=== PATIENT | female | born 1950 | race Caucasian/White ===

== ENCOUNTER → 2021-05-01 | Outpatient (CLI) | payer MEDICARE, BC ==
--- NOTE | 2021-05-01 14:32 | XR ---
EXAMINATION TYPE: XR chest 2V DATE OF EXAM: 05/01/2021 COMPARISON: 07/12/2015 TECHNIQUE: PA and lateral views submitted. HISTORY: Night sweats FINDINGS: The lungs are clear and there is no pneumothorax, pleural effusion, or focal pneumonia. Hyperexpans ion of lungs correlate for COPD. Degenerative changes spine. Heart size normal. No overt failure. Marisa pical pleural thickening. Arthropathy of the shoulder. Curvature of the spine compatible scoliosis. IMPRESSION: 1. No acute process.
== END | disposition home or self-care (01) ==
LOC: RADXRMAIN 14:12
PROVIDERS: ATTEND Family Medicine
DX: R61 Generalized hyperhidrosis (principal)
CPT/HCPCS: 71046

== ENCOUNTER → 2021-08-26 | Outpatient (CLI) | payer MEDICARE, BC | END | disposition home or self-care (01) | LOC: LABWHC1 14:10 | PROVIDERS: ATTEND Nurse Practitioner Family | DX: J30.89 Other allergic rhinitis (principal) | CPT/HCPCS: 36415 ==

== ENCOUNTER 2022-03-09 12:50 | Emergency (ER) | payer MEDICARE, BC ==
[2022-03-09 13:21] VITALS: BP 174/85; PULSE 82; RESP 20; TEMP 98.5
--- NOTE | 2022-03-09 14:43 | XR ---
Chest x-ray with bilateral RIBS HISTORY: Trauma and pain From view of the chest, 4 views of the left ribs and 4 views of the right ribs are submitted on total 9 images Correlation to chest x-ray 05/01/2021 There is no evident pneumothorax or pleural effusion. There is a spinal curvature. Cardiac mediastina l silhouette is stable. No evident airspace disease. No displaced rib fracture is seen. Bifid fourth rib on the left is suspected. IMPRESSION: Correlate for point tenderness, bone scan could be performed to assess for occult fractur e as indicated.
[2022-03-09] MEDS ORDERED: BACITRACIN OINT 1 EACH PACKET TOPICAL ONE (14:45)
--- NOTE | 2022-03-09 15:01 | CT ---
EXAMINATION TYPE: CT brain cspine wo con CT DLP: 1368.8 mGycm, Automated exposure control for dose reduction was used. DATE OF EXAM: 03/09/2022 2:01 PM COMPARISON: None.. CLINICAL INDICATION:Female, 71 years old with history of fall; Fall TECHNIQUE: Brain: Multiple axial CT images of the brain were obtained without IV contrast. Cspine: Axial CT images from the skull base to the inferior aspect of T2 we obtained without intraven ous contrast. Coronal and sagittal reformatted images were also reviewed. FINDINGS: Brain: Extra-axial spaces: No abnormal extra-axial fluid collections. Ventricular system: Within normal limits Cerebral parenchyma: No acute intraparenchymal hemorrhage or mass effect. The klein-white junction is well differentiated. Scattered hypoattenuating areas are seen within the white matter. Cerebellum: Unremarkable. Mass effect: No evidence of midline shift. Intracranial vasculature: Atherosclerotic calcifications of the intracranial vessels. Soft tissues: Normal. Calvarium/osseous structures: No depressed skull fracture. Paranasal sinuses and mastoid air cells: Clear. Visualized orbits: Right aphakia Cervical spine: Fracture: None. Osseous structures: Mild multilevel degenerative disc disease changes with endplate spurring and disc osteophyte complex's. Vertebral alignment: Within normal limits. Spinal canal/Neural Foramina: Disc osteophyte complexes at C5-C6 with at least mild spinal canal sten osis. No evidence for significant neural foraminal stenosis. Neck soft tissues: Prevertebral soft tissues are within normal limits. Other: The airway is patent. 6 mm groundglass nodule within the left upper lobe. IMPRESSION: 1. No acute intracranial process. 2. Nonspecific white matter changes, likely secondary to chronic small vessel ischemic disease. 3. No evidence of cervical spine fracture. 4. Mild multilevel degenerative disc disease. 5. 6 mm groundglass nodule within the left upper lobe. CT chest examination in 6 months is recommende d.
[2022-03-09] MEDS ORDERED: HYDROmorphone 1 MG/ML 1 ML SYRINGE IM STA (15:34)
--- NOTE | 2022-03-09 15:34 | ED ---
Fall HPI - General Chief Complaint: Fall Stated Complaint: head & back injury Time Seen by Provider: 03/09/22 13:26 Source: patient Mode of arrival: ambulatory - History of Present Illness Initial Comments: Patient is a 71-year-old female presenting for evaluation post fall. Patient was walking into a store when the entrance door flung open hitting her on the left side of the head, this caused her to fall backwards. The lower portion of her ribs on the right side hit a ledge made out of bricks. No loss of consciousness and patient is not on any blood thinners. No difficulty breathing, hemoptysis, hematemesis. No chest pain, abdominal pain, nausea, vomiting, dizziness, vision or hearing changes, neck pain or stiffness, numbness, tingling, weakness. - Related Data Home Medications Medication Instructions Recorded Confirmed amLODIPine [Norvasc] 5 mg PO DAILY 07/12/15 07/12/15 lisinopriL [Zestril] 10 mg PO DAILY 07/12/15 07/12/15 Previous Rx's Medication Instructions Recorded LORazepam [Ativan] 1 mg PO BID PRN #20 tab 07/12/15 Lidocaine 5% Patch [Lidoderm 5% 1 patch TOPICAL DAILY PRN #1 pack 03/09/22 Patch] Allergies Allergy/AdvReac Type Severity Reaction Status Date / Time erythromycin base Allergy Rash/Hives Verified 03/09/22 13:21 Review of Systems ROS Statement: Those systems with pertinent positive or pertinent negative responses have been documented in the HPI. ROS Other: All systems not noted in ROS Statement are negative. Past Medical History Past Medical History: Hypertension History of Any Multi-Drug Resistant Organisms: None Reported Past Surgical History: Appendectomy, Hysterectomy, Orthopedic Surgery, Tonsillectomy Additional Past Surgical History / Comment(s): lt ankle ,lt knee Past Psychological History: No Psychological Hx Reported Smoking Status: Never smoker Past Alcohol Use History: Occasional, Rare Past Drug Use History: Marijuana General Exam Limitations: no limitations General appearance: alert, in no apparent distress Head exam: Present: atraumatic, normocephalic, normal inspection Eye exam: Present: normal appearance, PERRL, EOMI. Absent: scleral icterus, conjunctival injection, periorbital swelling Pupils: Present: normal accommodation Neck exam: Present: normal inspection, full ROM. Absent: tenderness Respiratory exam: Present: normal lung sounds bilaterally. Absent: respiratory distress, wheezes, rales, rhonchi, stridor Cardiovascular Exam: Present: regular rate, normal rhythm, normal heart sounds. Absent: systolic murmur, diastolic murmur, rubs, gallop, clicks Extremities exam: Present: normal inspection, full ROM Neurological exam: Present: alert, oriented X3, CN II-XII intact Expanded Patient oriented to: Present: person, place, time Speech: Present: fluid speech Cranial nerves: EOM's Intact: Normal, Facial Sensation: Normal Sensory exam: Upper Extremity Light Touch: Normal, Lower Extremity Light Touch: Normal Motor strength exam: RUE: 5, LUE: 5, RLE: 5, LLE: 5 Eye Response: (4) open spontaneously Motor Response: (6) obeys commands Verbal Response: (5) oriented Gene Total: 15 Psychiatric exam: Present: normal affect, normal mood Skin exam: Present: warm, dry, intact, normal color. Absent: rash Course Vital Signs 03/09/22 13:18 Temperature 98.5 F Pulse Rate 82 Respiratory 20 Rate Blood Pressure 174/85 O2 Sat by Pulse 97 Oximetry Medical Decision Making - Medical Decision Making Patient is a 71-year-old female presenting for evaluation post fall. Patient hit her head and the right side of her ribs. No loss of consciousness or blood thinners. Physical examination shows no focal neurological deficits, GCS 15. CT of the brain and cervical spine shows no acute intracranial process or fracture, x-ray of the ribs shows no fracture or pneumothorax. Patient is given pain medication. Follow-up with PCP. Report back to ER with any new or worsening symptoms. Discussed return parameters and answered all questions. Patient conveyed verbal understanding and agreed to the plan. I discussed this case in detail with my attending Dr. Killian. Disposition Clinical Impression: Head injury, Rib injury Disposition: HOME SELF-CARE Condition: Good Instructions (If sedation given, give patient instructions): Rib Fracture (ED), Head Injury (ED) Additional Instructions: Follow-up with PCP. Report back to ER with any new or worsening symptoms. Take Motrin and Tylenol as needed for pain control. Prescriptions: Lidocaine 5% Patch [Lidoderm 5% Patch] 1 patch TOPICAL DAILY PRN #1 pack PRN Reason: Pain Is patient prescribed a controlled substance at d/c from ED?: No Referrals: Enio Lemus DO [Primary Care Provider] - 1-2 days Time of Disposition: 15:34
== END 2022-03-09 15:48 | disposition home or self-care (01) ==
LOC: EC 12:50
DX: S22.31XA Fracture of one rib, right side, initial encounter for closed fracture (principal); S09.90XA Unspecified injury of head, initial encounter; I10 Essential (primary) hypertension; F12.90 Cannabis use, unspecified, uncomplicated; Z79.899 Other long term (current) drug therapy; W01.198A Fall on same level from slipping, tripping and stumbling with subsequent striking against other object, initial encounter
CPT/HCPCS: 71111; 72125; 70450; 99284; 96372; J1170

== ENCOUNTER → 2022-09-23 | Outpatient (CLI) | payer MEDICARE, BC ==
--- NOTE | 2022-09-23 13:57 | CT ---
EXAMINATION TYPE: CT chest w con DATE OF EXAM: 09/23/2022 COMPARISON: CT cervical spine March 09, 2022 HISTORY: nodules. Prior abnormal CT. CT DLP: 141.3 mGycm. Automated Exposure Control for Dose Reduction was Utilized. TECHNIQUE: CT scan of the thorax is performed following with IV Contrast, patient injected with 100 mL of Isovue 300. FINDINGS: LUNGS: Stable 5 to 6 mm left upper lobe groundglass nodule axial image 9 corresponding to coronal cristopher ge 45. Mild scattered linear scarring including slightly more prominent or thickened scarring with mi ld peribronchial wall thickening in the right midlung anteriorly having more nodular component on axi al image 37 measuring 1.4 x 0.7 cm. No pleural effusion or pneumothorax seen bilaterally. MEDIASTINUM: There are no greater than 1 cm hilar or mediastinal lymph nodes. No cardiomegaly or pe ricardial effusion is seen. Coronary artery calcification is present. OTHER: There are a few small simple appearing thin-walled cysts scattered throughout the liver. There is scoliosis in the thoracic spine. IMPRESSION: There is stable 5 to 6 mm left upper lobe groundglass nodule. Mild scattered linear scarr ing with more nodular component in the right mid lung anteriorly. Cannot exclude underlying true pulm onary nodule versus nodular scarring. Advise PET CT follow-up to further evaluate.
== END | disposition home or self-care (01) ==
LOC: RADCTMAIN 12:38
PROVIDERS: ATTEND Internal Medicine
DX: J98.4 Other disorders of lung (principal); R91.1 Solitary pulmonary nodule
CPT/HCPCS: 82565; 84520; 71260; 36415; Q9967

== ENCOUNTER → 2023-07-16 | Outpatient (CLI) | payer MEDICARE, BC ==
[2023-07-16 11:28] LABS: African American GFR (CKD) 89 (>60 ml/min/1.73 sqM); Blood Urea Nitrogen 20 mg/dL (7-17); Non-African American GFR(CKD) 77 (>60 ml/min/1.73 sqM)
--- NOTE | 2023-07-16 13:05 | CT ---
Exam: CT Chest with contrast. Date: 07/16/2023. Comparison: 09/23/2022. History: Follow-up for pulmonary nodule. Technique: CT examination of the chest was performed following the intravenous administration of 100 mL of Isovue-300. Coronal and sagittal reformats were performed. CT dose lowering techniques were us ed, to include: automated exposure control, adjustment for patient size, and/or use of iterative anneliese nstruction. FINDINGS: Mediastinum and Tabitha: There is no axillary, mediastinal or hilar lymphadenopathy. Pleural and Pericardial spaces: There are no pleural or pericardial effusions. Upper Abdomen: Several cysts are seen within the partially visualized liver and the included upper ab domen. The visualized upper abdomen otherwise appears unremarkable. Cardiovascular: The thoracic aorta is normal in size without evidence of aneurysm or dissection. Pulmonary Artery: There are no central pulmonary arterial abnormalities. The examination was not per formed to evaluate for pulmonary embolism. Lung Parenchyma and Airways: Unchanged 4.1 mm groundglass nodule in the left lung apex. The lungs oth erwise appear clear. Bones: No fracture or aggressive osseous lesion. IMPRESSION: 1. Unchanged 4.1 mm groundglass left upper lobe nodule. No specific follow-up is recommended at this time. 2. No new or enlarging nodules. 3. No acute findings.
== END | disposition home or self-care (01) ==
LOC: RADCTMAIN 10:39
PROVIDERS: ATTEND Internal Medicine
DX: R91.1 Solitary pulmonary nodule (principal)
CPT/HCPCS: 82565; 84520; 71260; 36415; Q9967

== ENCOUNTER → 2024-01-17 | Outpatient (CLI) | payer MEDICARE, BC ==
--- NOTE | 2024-02-07 09:00 | CT ---
Patient: Pati Baca A Ordering Physician: Unknown, Unknown ID: [id number] Phone, Pager: P glory: N/A Pager: N/A : 1950 Age/Gender: 73Y, F Primary Location: N/A Procedure: CT Chest w C ontrast Study Date: 01/17/2024 4:55:00 PM EXAMINATION TYPE: CT chest w con CT DLP: 315 mGycm, Automated exposure control for dose reduction was used. DATE OF EXAM: 01/17/2024 7:08 PM COMPARISON: 07/16/2023 CLINICAL INDICATION: Solid pulmonary nodule. TECHNIQUE: Multiple axial images were obtained through the chest. Sagittal and coronal reformats were created for review. Contrast used: mL of (None if empty) Oral contrast used: (None if empty) FINDINGS: LUNGS/ PLEURA: Stable ground glass pulmonary nodule left upper lobe series 2 image 9 dating back to 1 . AIRWAY: Patent and unremarkable. HEART: Size within normal limits. MEDIASTINUM: No gross evidence of adenopathy. Small hiatal hernia. VASCULATURE: No aortic aneurysm. MUSCULOSKELETAL: No acute osseous abnormalities SOFT TISSUES/LYMPH NODES: Unremarkable. LOWER NECK: No significant findings. UPPER ABDOMEN: Scattered simple appearing hepatic cysts. IMPRESSION: 1. Stable left upper lobe 5 mm groundglass pulmonary nodule dating back to 03/09/2022. No new enlarg ing pulmonary nodules. 2. Small hiatal hernia.
== END | disposition home or self-care (01) ==
LOC: RADCTMAIN 14:05
PROVIDERS: ATTEND Internal Medicine Critical Care Medicine
DX: R91.1 Solitary pulmonary nodule (principal); K44.9 Diaphragmatic hernia without obstruction or gangrene
CPT/HCPCS: 71260; 36415; Q9967

== ENCOUNTER → 2024-04-22 | Outpatient (CLI) | payer MEDICARE, BC ==
--- NOTE | 2024-04-23 14:34 | MR ---
EXAMINATION TYPE: MRI left hand without IV contrast DATE OF EXAM: 04/22/2024 10:25 AM COMPARISON: None. CLINICAL INDICATION: Female, 73 years old with history of M79.642 PAIN IN LEFT HAND, Palpable mass on palm of left hand, marker placed TECHNIQUE:Standard multiplanar, multisequence MRI departmental protocol. Multiplanar, multisequence i mages of the left hand were acquired without contrast. FINDINGS: Lobular hyperintense T2/hypointense T1 mass along the palmar soft tissues abutting the palmar fascia measuring up to 7 x 12 x 20 mm (AP, TV and CC dimensions) without surrounding soft tissue edema. Lesi on does not involve the flexor tendon sheaths. Flexor and extensor tendons are intact. Collateral ligaments are intact. No significant joint effusio n. Scattered degenerative changes throughout the carpus, greatest at the first CMC joint. Probable in traosseous ganglion along the base of the second metacarpal. Presumed degenerative cysts within the l unate. Negative for fracture or subluxation. Musculature is intact. IMPRESSION: 1. Lobular lesion along the volar aspect of the palmar fascia as above which is nonspecific but may r elate to a ganglion or varix. Solid lesion not entirely excluded without the use of intravenous contr ast. Recommend further evaluation with ultrasound. 2. Degenerative/incidental findings as above. [facility], , 04/23/2024 2:32 PM
== END | disposition home or self-care (01) ==
LOC: RADMRIMAIN 09:42
PROVIDERS: ATTEND Orthopaedic Surgery Hand Surgery
DX: M19.042 Primary osteoarthritis, left hand (principal)

== ENCOUNTER → 2024-09-15 | Outpatient (CLI) | payer MEDICARE, BC ==
[2024-09-15 09:59] LABS: African American GFR (CKD) 80 (>60 ml/min/1.73 sqM); Blood Urea Nitrogen 27 mg/dL (7-17); Non-African American GFR(CKD) 69 (>60 ml/min/1.73 sqM)
--- NOTE | 2024-09-15 11:07 | CT ---
EXAMINATION TYPE: CT chest w con CT DLP: 132.30 mGycm, Automated exposure control for dose reduction was used. DATE OF EXAM: 09/15/2024 10:32 AM COMPARISON: CT chest 02/05/2024, 07/16/2023, 09/23/2022, CT brain C-spine 03/09/2022 CLINICAL INDICATION:Female, 74 years old with history of R91.1 SPN; PHH, SPN. prior on pacs TECHNIQUE: Multiple axial images were obtained through the chest following the administration of 100 cc of Isovue 300. . Coronal and sagittal reformats reviewed. FINDINGS: LUNGS/ PLEURA: No pleural effusion, pneumothorax, focal consolidation. Minimal posterior right upper lobe linear scarring. Stable ground glass pulmonary nodule left upper lobe measuring up to 5 mm (seri es 4, image 10). No new or enlarging pulmonary nodules. Minimal right apical pleural-parenchymal scar ring. AIRWAY: Patent and unremarkable. HEART: Size within normal limits.No pericardial effusion. No significant coronary arterial calcificat ions. MEDIASTINUM: No evidence of adenopathy. Small hiatal hernia. VASCULATURE: No aortic aneurysm. Minimal atherosclerotic calcification of the aorta. MUSCULOSKELETAL: No acute osseous abnormalities. Dextrocurvature of the thoracic spine. Mild multilev el degenerative disc disease. SOFT TISSUES/LYMPH NODES: Unremarkable. LOWER NECK: No significant findings. UPPER ABDOMEN: Scattered simple appearing hepatic cysts redemonstrated. Small hiatal hernia. IMPRESSION: 1. Stable left upper lobe 5 mm groundglass pulmonary nodule dating back to 03/09/2022. Stability sug gests a benign nodule. No new enlarging pulmonary nodules. 2. Small hiatal hernia. [facility], , 09/15/2024 11:05 AM
== END | disposition home or self-care (01) ==
LOC: RADCTMAIN 09:08
PROVIDERS: ATTEND Internal Medicine
DX: R91.1 Solitary pulmonary nodule (principal); K44.9 Diaphragmatic hernia without obstruction or gangrene
CPT/HCPCS: 82565; 84520; 71260; 36415; Q9967

== ENCOUNTER → 2024-11-08 | Outpatient (CLI) | payer MEDICARE, BC ==
--- NOTE | 2024-11-08 14:20 | US ---
EXAMINATION TYPE: US thyroid st tissue head/neck DATE OF EXAM: 11/08/2024 COMPARISON: NONE CLINICAL INDICATION: Female, 74 years old with history of E04.9 NONTOXIC GOITER; TECHNIQUE: Grayscale and color Doppler imaging of the thyroid gland. FINDINGS: GLAND SIZE: Right Lobe: cm Overall Parenchyma: Left Lobe: cm Overall Parenchyma: Isthmus Thickness: cm NODULES RIGHT: # of nodules measured on right: 0 Colloid cyst seen LEFT: # of nodules measured on left: 1 1. 1.2 X 1.0 x 1.1 cm, lower mid, solid or almost completely solid, hypoechoic nodule, which is antoni ler than wide, with smooth margins, without echogenic foci. TR 4 Prior size: No prior ISTHMUS: # of nodules measured in the isthmus: 0 Bilateral neck scanned. Left lymph node seen with short axis = 0.5 cm and cortical thickness = 3.1 m m IMPRESSION: 1. Moderately suspicious nodule left lobe thyroid. Follow-up exam in one year recommended. 2. Lymph node with some mild thickening of the cortex. Consider additional workup. Highest TI-RADS level nodule reported: 2017 ACR TI-RADS LEVEL: TI-RADS 4 - Moderately Suspicious: Follow if > 1 cm, FNA if > 1.5 cm TI-RADS assessment score and recommendation for follow-up based on appropriate scoring and treatment protocols. TR1 Benign No FNA TR2 Not suspicious No FNA TR3: If nodule size is ? 2.5 cm, FNA is recommended. If nodule size is ? 1.5 cm, follow-up imaging at 1, 3, and 5 years is recommended. TR4: If nodule size is ? 1.5 cm, FNA is recommended. If nodule size is ? 1.0 cm, follow-up imaging at 1, 2, 3, and 5 years is recommended. TR5: If nodule size is ? 1.0 cm, FNA is recommended. If nodule size is ? 0.5 cm, annual follow-up for up to 5 years is recommended. TR 1 thyroid nodules have a 0.3 % risk of malignancy. TR 2 thyroid nodules have a 1.5 % risk of malignancy. TR 3 thyroid nodules have a 4.8 % risk of malignancy. TR 4 thyroid nodules have a 9.1 % risk of malignancy. TR 5 thyroid nodules have a 35 % risk of malignancy. [email or web address] [facility], , 11/08/2024 2:17 PM
== END | disposition home or self-care (01) ==
LOC: RADUSWWP 12:40
PROVIDERS: ATTEND Family Medicine
DX: E04.1 Nontoxic single thyroid nodule (principal)
CPT/HCPCS: 76536